=== PATIENT | female | born 1985 | race Asian ===

== ENCOUNTER 2019-12-21 11:57 | Emergency (ER) | payer BC ==
[2019-12-21 12:14] VITALS: BMI 20.9
--- NOTE | 2019-12-21 13:18 | PDOC ---
History of Present Illness - General History Source: Patient Exam Limitations: No Limitations - History of Present Illness Travel History: No Initial Comments: 12/21/19 13:15 34-year-old female currently 6 weeks presents to ED with complaints of vaginal bleeding since last night. Patient states she was found that she was last week and has not seen [facility] as of yet. Patient states mild mid suprapubic cramping without passage of clots. Patient has no urinary complaints , nausea, fever, back pain, or diarrhea. Patient has no other complaints at this time. Timing/Duration: reports: constant Quality: reports: mild, cramping Abdominal Pain Onset Location: reports: suprapubic Pain Radiation: reports: no radiation Activities at Onset: reports: none Aggravating Factors: improves with: None Alleviating Factors: improves with: None <Sharlene Maddox - Last Filed: 12/21/19 15:26> <Jeannie Gambino - Last Filed: 12/22/19 23:01> - General Chief Complaint: Vaginal Bleeding Stated Complaint: VAGINAL BLEEDING Time Seen by Provider: 12/21/19 12:42 Past History - Travel Traveled outside of the country in the last 30 days: No Close contact w/someone who was outside of country & ill: No - Psycho Social/Smoking Cessation Hx Smoking History: Never smoked Hx Alcohol Use: No Drug/Substance Use Hx: No Patient Lives Alone: No Lives with/in: spouse/SO <Sharlene Maddox - Last Filed: 12/21/19 15:26> <Jeannie Gambino - Last Filed: 12/22/19 23:01> - Past Medical History Allergies/Adverse Reactions: Allergies Allergy/AdvReac Type Severity Reaction Status Date / Time No Known Allergies Allergy Verified 12/21/19 12:12 Home Medications: Ambulatory Orders NK [No Known Home Medication] 04/19/18 Review of Systems - Review of Systems Able to Perform ROS?: Yes Constitutional: No: Symptoms Reported HEENTM: No: Symptoms Reported Respiratory: No: Symptoms reported Cardiac (ROS): No: Symptoms Reported ABD/GI: Yes: Abdominal cramping : Yes: Discharge (vag bleeding) Musculoskeletal: No: Symptoms Reported Integumentary: No: Symptoms Reported Neurological: No: Symptoms reported <Sharlene Maddox - Last Filed: 12/21/19 15:26> *Physical Exam - Vital Signs Last Vital Signs Temp Pulse Resp BP Pulse Ox 98.9 F 63 16 125/65 98 12/21/19 12:12 12/21/19 12:12 12/21/19 12:12 12/21/19 12:12 12/21/19 12:12 - Physical Exam General Appearance: Yes: Nourished, Appropriately Dressed. No: Apparent Distress HEENT: positive: EOMI, MANDI, TMs Normal, Pharynx Normal. negative: Pale Conjunctivae Neck: positive: Supple Respiratory/Chest: positive: Lungs Clear, Normal Breath Sounds. negative: Respiratory Distress, Accessory Muscle Use Cardiovascular: positive: Regular Rhythm, Regular Rate. negative: Murmur Female Pelvic Exam: positive: cervical os closed, vaginal bleeding (dark red in minimal amount . no clots) Gastrointestinal/Abdominal: positive: Soft, Tenderness (midsuprapubic) Musculoskeletal: negative: CVA Tenderness Integumentary: positive: Normal Color, Warm, Moist <Sharlene Maddox - Last Filed: 12/21/19 15:26> - Vital Signs Last Vital Signs Temp Pulse Resp BP Pulse Ox 98.9 F 63 16 125/65 98 12/21/19 12:12 12/21/19 12:12 12/21/19 12:12 12/21/19 12:12 12/21/19 12:12 <Jeannie Gambino - Last Filed: 12/22/19 23:01> ED Treatment Course - LABORATORY CBC & Chemistry Diagram: 12/21/19 13:30 12/21/19 13:30 <Sharlene Maddox - Last Filed: 12/21/19 15:26> - LABORATORY CBC & Chemistry Diagram: 12/21/19 13:30 12/21/19 13:30 - ADDITIONAL ORDERS Additional order review: Laboratory Results 12/21/19 12/21/19 12/21/19 13:30 13:30 13:30 Sodium 136 Potassium 4.1 Chloride 106 Carbon Dioxide 24 Anion Gap 6 L BUN 7.4 Creatinine 0.7 Est GFR (CKD-EPI)AfAm 132.87 Est GFR (CKD-EPI)NonAf 114.64 Random Glucose 87 Calcium 9.0 Total Bilirubin 0.5 AST 14 L ALT 19 Alkaline Phosphatase 71 Total Protein 8.0 Albumin 4.4 Beta HCG, Quant 36512.5 Urine Color Yellow Urine Appearance Clear Urine pH 5.5 Ur Specific [place] 1.016 Urine Protein Negative Urine Glucose (UA) Negative Urine Ketones Negative Urine Blood 1+ H Urine Nitrite Negative Urine Bilirubin Negative Urine Urobilinogen 0.2 Ur Leukocyte Esterase Negative Urine WBC (Auto) 1 Urine RBC (Auto) 3 Urine Casts (Auto) 3 U Epithel Cells (Auto) 1.4 Urine Bacteria (Auto) 6.7 Blood Type O POSITIVE Antibody Screen Negative 12/21/19 13:30 RBC 4.28 MCV 88.0 MCHC 33.5 RDW 13.5 MPV 8.6 Neutrophils % 79.4 Lymphocytes % 13.1 Monocytes % 7.2 Eosinophils % 0.1 Basophils % 0.2 <Jeannie Gambino - Last Filed: 12/22/19 23:01> Medical Decision Making - Medical Decision Making 12/21/19 13:23 Chief complaint approximately 6 weeks patient now with vaginal bleeding since yesterday midsuprabic cramping. Exam: Patient with dark red scant amount of blood no clots with severe tenderness on exam. No CVA tenderness vital signs stable. Plan: Labs, urine ultrasound ordered patient offered Tylenol but refused. 12/21/19 15:12 Laboratory Tests 12/21/19 12/21/19 13:30 13:30 Sodium 136 Potassium 4.1 Chloride 106 Carbon Dioxide 24 Anion Gap 6 L BUN 7.4 Creatinine 0.7 Est GFR (CKD-EPI)AfAm 132.87 Est GFR (CKD-EPI)NonAf 114.64 Random Glucose 87 Calcium 9.0 Total Bilirubin 0.5 AST 14 L ALT 19 Alkaline Phosphatase 71 Total Protein 8.0 Albumin 4.4 Beta HCG, Quant 31896.5 Blood Type O POSITIVE Currently awaiting ultrasound reading 12/21/19 15:27 Laboratory Tests 12/21/19 12/21/19 12/21/19 13:30 13:30 13:30 WBC 9.6 Hgb 12.6 Hct 37.6 Absolute Neuts (auto) 7.6 Sodium 136 Potassium 4.1 Chloride 106 Carbon Dioxide 24 Anion Gap 6 L BUN 7.4 Creatinine 0.7 Est GFR (CKD-EPI)AfAm 132.87 Est GFR (CKD-EPI)NonAf 114.64 Random Glucose 87 Calcium 9.0 Total Bilirubin 0.5 AST 14 L ALT 19 Alkaline Phosphatase 71 Total Protein 8.0 Albumin 4.4 Beta HCG, Quant 66088.5 Urine Blood 1+ H Urine Nitrite Negative Urine Bilirubin Negative Ur Leukocyte Esterase Negative Urine RBC (Auto) 3 Blood Type Antibody Screen 12/21/19 13:30 WBC Hgb Hct Absolute Neuts (auto) Sodium Potassium Chloride Carbon Dioxide Anion Gap BUN Creatinine Est GFR (CKD-EPI)AfAm Est GFR (CKD-EPI)NonAf Random Glucose Calcium Total Bilirubin AST ALT Alkaline Phosphatase Total Protein Albumin Beta HCG, Quant Urine Blood Urine Nitrite Urine Bilirubin Ur Leukocyte Esterase Urine RBC (Auto) Blood Type O POSITIVE Antibody Screen Negative Ultrasound shows intrauterine gestation of 6 weeks 0 days with no heart rate. Recommend correlation ultrasound and beta hCG in 2 days. Patient will be discharged home with recommendations to take Tylenol and return sooner if symptoms worsen <Sharlene Maddox - Last Filed: 12/21/19 15:26> - Medical Decision Making The patient was seen and evaluated in conjunction with midlevel provider under my direct supervision, ancillary studies were reviewed. I agree with the plan as outlined with BENITO Maddox. HPI, workup/dispo as outlined. Beta hCG is 15, 243, urinalysis negative for any kind of infection. Electrolytes creatinine are preserved, CBC including H/H is normal. TAB with 6 weeks IUP measured by crown-rump length, IUP is visualized no FHR as this is likely early / gestation and warrants repeat and josesito with beta hcg.. Trace pelvic fluid, right-sided ovarian cyst without evidence of torsion. VS reviewed, wnl. anticipate discharge, pcp followup, return precautions 12/21/19 14:57 12/22/19 23:01 <Jeannie Gambino - Last Filed: 12/22/19 23:01> Discharge - Discharge Information Problems reviewed: Yes <Sharlene Maddox - Last Filed: 12/21/19 15:26> <Jeannie Gambino - Last Filed: 12/22/19 23:01> - Discharge Information Clinical Impression/Diagnosis: Threatened Condition: Good Disposition: HOME - Patient Discharge Instructions Patient Printed Discharge Instructions: DI for Threatened Additional Instructions: Please return here in 2 days or with your [facility] to have repeat beta-hCG and ultrasound done. May take Tylenol only for discomfort and if any symptoms worsen prior to your return visit go to the nearest emergency room
[2019-12-21 13:41] LABS: BASO % 0.2 % (0-2.0); EOS % 0.1 % (0-4.5); HEMATOCRIT 37.6 % (32.4-45.2); HEMOGLOBIN 12.6 GM/dL (10.7-15.3); LYMPH % 13.1 % (8-40); MCH 29.5 pg (25.7-33.7); MCHC 33.5 g/dl (32.0-36.0); MEAN PLT VOLUME 8.6 fl (7.5-11.1); MONO % 7.2 % (3.8-10.2); NEUT % 79.4 % (42.8-82.8); PLATELET COUNT 242 K/MM3 (134-434); RBC 4.28 M/mm3 (3.60-5.2); RDW 13.5 % (11.6-15.6); WHITE BLOOD COUNT 9.6 K/mm3 (4.0-10.0)
[2019-12-21 13:48] LABS: EPI CELLS 1.4 /HPF (0-5/HPF); HYALINE CASTS 3 /lpf (0-8); PH,URINE 5.5 (5.0-8.0); URINE APPEARANCE CLEAR; URINE BACTERIA 6.7 /hpf (NEGATIVE); URINE BILIRUBIN NEGATIVE (NEGATIVE); URINE COLOR YELLOW; URINE GLUCOSE (UA) NEGATIVE (NEGATIVE); URINE KETONE NEGATIVE (NEGATIVE); URINE LEUK ESTERASE NEGATIVE (NEGATIVE); URINE NITRITE NEGATIVE (NEGATIVE); URINE PROTEIN NEGATIVE (NEGATIVE); URINE RBC 3 /hpf (0-4); URINE UROBILINOGEN 0.2 mg/dL (0.2-1.0); URINE WBC 1 /hpf (0-5)
[2019-12-21 14:15] LABS: ALBUMIN 4.4 g/dl (3.4-5.0); BILIRUBIN,TOTAL 0.5 mg/dL (0.2-1); BLOOD UREA NITROGEN 7.4 mg/dL (7-18); CREATININE 0.7 mg/dL (0.55-1.3); POTASSIUM 4.1 mmol/L (3.5-5.1)
[2019-12-21 15:49] VITALS: BP 107/64; PULSE 66; TEMP 99.1
== END 2019-12-21 15:46 | disposition home or self-care (01) ==
LOC: JER 11:57
DX: O26.891 Other specified pregnancy related conditions, first trimester (principal); O20.0 Threatened abortion; Z3A.01 Less than 8 weeks gestation of pregnancy
CPT/HCPCS: 36415; 76817-TC; 80053; 81003; 84702; 85025; 86850; 86900; 86901; 87086; 99284-25

== ENCOUNTER 2019-12-24 14:34 | Emergency (ER) | payer SELFPAY ==
--- NOTE | 2019-12-24 14:40 | PDOC ---
Rapid Medical Evaluation Time Seen by Provider: 12/24/19 14:36 Medical Evaluation: Allergies Allergy/AdvReac Type Severity Reaction Status Date / Time No Known Allergies Allergy Verified 12/24/19 14:37 12/24/19 14:38 Pt presents for repeat beta hcg and TVUS. LMP 10/25/19. Seen on 12/21/19 for vaginal bleeding in early preg and told to come back and f/u testing as there was no HR seen yet. Pt with an IUP. Blood type O+ per chart. Pt states bleeding has stopped. Exam: deferred to provider. NAD Orders: TVUS, beta Pt to proceed to the ER for further evaluation Discharge Disposition - Diagnosis - Referrals - Patient Instructions - Post Discharge Activity
[2019-12-24 14:41] VITALS: TEMP 98.2; BMI 20.9
--- NOTE | 2019-12-24 16:03 | PDOC ---
History of Present Illness - General Chief Complaint: Vaginal Bleeding Stated Complaint: VAGINAL BLEEDING Time Seen by Provider: 12/24/19 14:36 History Source: Patient Exam Limitations: No Limitations - History of Present Illness Initial Comments: 12/24/19 15:58 HPI: 34yo F no sig pmh with vaginal bleeding for 3 hours yesterday. Seen Dec 21 for SAB at 6wks. Menstrual cycle vs SAB for several days. Painful crampy abd pain / vaginal bleeding 5-6 pads over 3 hours. Started while on the phone talking. Dizziness, LH, fell and hit her chin when standing up, +reported LOC, hitting her chin, no open laceration, not on any AC, no headache/N/V since. No bleeding or pain today. No OBGYN for follow up - wants a referral. Took Tylenol for her pain - cannot quantify. Denies N/V/CP/SOB/F/C/pain/bleeding/discharge/not lightheaded. All: NKDA Meds: Denies PMH: Denies PSH: 1x elective late term AB SHx: Denies toxic habits Past History - Travel Traveled outside of the country in the last 30 days: No Close contact w/someone who was outside of country & ill: No - Past Medical History Allergies/Adverse Reactions: Allergies Allergy/AdvReac Type Severity Reaction Status Date / Time No Known Allergies Allergy Verified 12/24/19 14:37 Home Medications: Ambulatory Orders NK [No Known Home Medication] 04/19/18 - Reproductive History (#): 2 Para: 1 - Psycho Social/Smoking Cessation Hx Smoking History: Never smoked Have you smoked in the past 12 months: No Hx Alcohol Use: No Drug/Substance Use Hx: No Review of Systems - Review of Systems Able to Perform ROS?: Yes Is the patient limited [place] proficient: Yes Constitutional: No: Chills, Diaphoresis, Fever HEENTM: No: Nose Congestion, Throat Pain Respiratory: No: Cough, Shortness of Breath Cardiac (ROS): No: Chest Pain, Irregular Heart Rate, Chest Tightness ABD/GI: No: Constipated, Diarrhea, Nausea, Vomiting : No: Burning, Dysuria, Frequency Musculoskeletal: No: Back Pain, Muscle Pain, Muscle Weakness, Neck Pain Integumentary: No: Pruritus, Rash Neurological: No: Headache, Numbness, Tingling, Tremors, Weakness Psychiatric: No: Stressors, Change in Appetite Endocrine: No: Increased Thirst, Increased Urine Hematologic/Lymphatic: No: Anemia, Blood Clots, Easy Bleeding All Other Systems: Reviewed and Negative *Physical Exam - Vital Signs Last Vital Signs Temp Pulse Resp BP Pulse Ox 98.2 F 65 18 103/47 L 100 12/24/19 14:37 12/24/19 14:37 12/24/19 14:37 12/24/19 14:37 12/24/19 14:37 - Physical Exam 12/24/19 15:58 Vitals reviewed, AFVSS GEN: Well appearing, appears stated age, NAD, comfortable. AAOx3. HEENT: +small ecchymosis on R chin, EOMI, PERRL. Sclera anicteric, noninjected. No facial asymmetry. Moist mucous membranes. Normal voice. Trachea midline. CV: RRR, S1/S2, no murmurs / rubs / gallops appreciated. LUNG: CTAB, normal work of breathing. No wheezes, rales, rhonchi. No cough. Speaking full sentences. GI: Soft, NTND, +BS, no guarding, no rebound. No masses. Neg CVAT b/l. EXTREMITIES: 2+ distal pulses. No LE edema. No obvious deformities of all extremities. SKIN: Warm, dry, no rashes appreciated, non-jaundiced. PSYCH: Normal mood and affect. Cooperative and appropriate. NEURO: CN grossly intact. Moving all extremities well. Normal strength and sensation grossly. ED Treatment Course - LABORATORY CBC & Chemistry Diagram: 12/24/19 16:45 Medical Decision Making - Medical Decision Making 12/24/19 15:58 34yo F no sig pmh with vaginal bleeding for 3 hours yesterday. Presenting to f/u s/p spontaneous , complicated by syncope. No active bleeding or complaints. Exam normal and vitals stable. DDX: Complete Ab vs retained POC. - TVUS, Beta HCG, CBC 12/24/19 18:02 - Beta HCG Quant down-trending appropriately - HGB 10.6 from 12.6 before, no active bleeding - No leukocytosis 12/24/19 19:53 - EKbpm, NSR, normal axis, QTc 407, no ischemic morphologies - TVUS - no retained products - Patient ready for D/c Dispo: Home Discharge - Discharge Information Problems reviewed: Yes Clinical Impression/Diagnosis: Spontaneous Condition: Good Disposition: HOME - Admission No - Follow up/Referral - Patient Discharge Instructions Additional Instructions: Continue your home medications as directed. Please follow up with your Primary care doctor in the next week and establish care with the referred OBGYN Return to the ED with any new or concerning symptoms - Post Discharge Activity
--- NOTE | 2019-12-24 16:38 | PDOC ---
Attending Attestation - Resident Resident Name: Alvino Rudolph - ED Attending Attestation I have performed the following: I have examined & evaluated the patient, The case was reviewed & discussed with the resident, I agree w/resident's findings & plan, Exceptions are as noted - HPI HPI: 12/24/19 16:52 34y A0 presents with complaint of vaginal bleeding and cramping yesterday. Pt was recently evaluated in th ED for bleeding, had a beta and TVUS consistent with gestational age approx 6 weeks. Pt was dc to fu with ob and fu beta/US. yesterday, she had a few hours of cramping and bleeding of clots. She also felt lightheaded and hit her chin on a radiator, possible brief LOC but she recalls falling. She ntoes she has some pain in her chin currently but deniesa ny headache, dizziness, nv, blurry vision, neck pain, back pain, focal numbness/ tinglingweakness. denies any current bleeding. notes her lower abd is a bit sore but pain is muc better than earlier. Exam: no acute distress contusion on chin, no tenderness to TMJ, normal movement of jaw, no malocclusion , no loose teeth no signs of mastoid tenderness/ecchymosis/racoon eyes no midline cervical/thoraic/lumbar tenderness no paraspinal tenderness abd exam noted for mild suprapubic ttp, no rebound/guarding, no cva tenderness will obtain repeat cbc, ekg for syncope will ck repeat beta and TVUS to eval for her - Physicial Exam PE: 12/28/19 10:33 see above - Medical Decision Making pt signed out to evening team to fu and dispo
[2019-12-24 17:21] LABS: BASO % 0.4 % (0-2.0); HEMATOCRIT 31.9 % (32.4-45.2); HEMOGLOBIN 10.6 GM/dL (10.7-15.3); LYMPH % 34.1 % (8-40); MCH 29.7 pg (25.7-33.7); MCHC 33.2 g/dl (32.0-36.0); MEAN CELL VOLUME 89.4 fl (80-96); MEAN PLT VOLUME 8.8 fl (7.5-11.1); MONO % 10.3 % (3.8-10.2); NEUT % 54.2 % (42.8-82.8); PLATELET COUNT 238 K/MM3 (134-434); RBC 3.57 M/mm3 (3.60-5.2); RDW 13.3 % (11.6-15.6); WHITE BLOOD COUNT 6.1 K/mm3 (4.0-10.0)
[2019-12-24 20:07] VITALS: BP 108/50; PULSE 79
--- NOTE | 2019-12-25 11:19 | EKG ---
Test Reason : Blood Pressure : / mmHG Vent. Rate : 063 BPM Atrial Rate : 063 BPM P-R Int : 126 ms QRS Dur : 082 ms QT Int : 398 ms P-R-T Axes : 057 043 056 degrees QTc Int : 407 ms NORMAL SINUS RHYTHM WITH SINUS ARRHYTHMIA NONSPECIFIC ST ABNORMALITY LEFT ATRIAL ENLARGEMENT ABNORMAL ECG Confirmed by MD PEGGY, JUAN JOSE ([id number]) on 12/25/2019 11:18:55 AM Referred By: Confirmed By:JUAN JOSE WOODS MD
== END 2019-12-24 20:17 | disposition home or self-care (01) ==
LOC: JER 14:34
DX: O03.9 Complete or unspecified spontaneous abortion without complication (principal); O26.891 Other specified pregnancy related conditions, first trimester; S00.83XA Contusion of other part of head, initial encounter; W22.8XXA Striking against or struck by other objects, initial encounter; Y93.89 Activity, other specified; Y92.89 Other specified places as the place of occurrence of the external cause; Y99.8 Other external cause status; Z3A.01 Less than 8 weeks gestation of pregnancy
CPT/HCPCS: 36415; 76817-TC; 84702; 85025; 93005; 93010; 99285-25